=== PATIENT | female | born 1985 | race Caucasian/White ===

== ENCOUNTER 2018-04-01 09:45 | Day surgery (SDC) | payer MEDICAID ==
[2018-03-31 10:16] LABS: BASOPHILS 0.1 % (0-2); EOSINOPHILS 1.3 % (0-7); HEMATOCRIT 37.4 % (36.0-48.0); HEMOGLOBIN 12.3 g/dL (12-16); IMMATURE GRANULOCYTES 0.2 % (0-5); LYMPHOCYTES 24.6 % (15-50); MCHC 32.9 g/dL (31.0-37.0); MCV 82.2 fL (80.0-100.0); MEAN PLATELET VOLUME 10.1 fL (7.4-10.4); MONOCYTES 5.8 % (2-11); PLATELET COUNT 314 10x3/uL (130-400); RBC 4.55 10x6/uL (4.00-5.40); RDW 15.1 % (11.5-14.5); WBC 9.5 10x3/uL (4.8-10.8)
[~2018-04-01] VITALS: Ht 160 cm; Wt 116.1 kg
--- NOTE | ~2018-04-01 | OP ---
PATIENT NAME: MERARI SINGH MEDICAL RECORD: [id number] :87 [facility] AD[facility] DATE: SURGEON: BRAIN DEL ROSARIO MD DATE OF OPERATION: 04/01/2018 PREOPERATIVE DIAGNOSIS: Undesired fertility. POSTOPERATIVE DIAGNOSIS: Undesired fertility. PROCEDURE: Laparoscopic tubal occlusion using Falope rings. SURGEON: Brain Del Rosario MD NUCLEAR MEDICAL TECHNOLOGIST: Brynn Cyr ANESTHETIC: General anesthetic with endotracheal intubation. FINDINGS: Uterus, tubes, and ovaries were unremarkable. What was visualized of the abdominal anatomy was also unremarkable. SPECIMENS REMOVED: Not applicable. ESTIMATED BLOOD LOSS: Less than or equal to 50 cc. FLUIDS: Lactated Ringer's, 600 cc. URINE OUTPUT: Quantity sufficient cath prior to this procedure. COMPLICATION: None. DRAINS: None. INDICATION: The patient is a 32-year-old multiparous female with undesired fertility. The patient has been given options for alternatives. The patient understands the risk of failure of 1:100 with an increased chance of an ectopic gestation if was to occur. DESCRIPTION OF PROCEDURE: After informed consent was assured, the patient was taken to the operating room, where anesthetic was obtained without difficulty. The patient was supine on the table and prepped and draped. Incision was made at the umbilicus to accommodate a 5-mm trocar, which was inserted without difficulty and pneumoperitoneum developed. Accessory trocar was now placed 2 fingerbreadths above the symphysis. With the patient in steep Trendelenburg position, a blunt probe was inserted through the accessory trocar and the bowel was swept free of the pelvis. Both right and left tubes were identified. Using a Falope ring applicator, the left tube was followed to its fimbriated end and then a section of the isthmic portion of the tube was selected to apply the Silastic band. This band was applied with good crease formation and blanching of the tissue. This was repeated on the contralateral side. The Falope ring applicator was reloaded with the second ring and again the tube was followed to its fimbriated end and the segment of the isthmic portion was selected. The second band was applied with good crease formation and blanching of the tissue. The occlusion sites of both tubes had Marcaine placed directly over the tube. The accessory port was removed under direct visualization as the pneumoperitoneum was released and then the primary port was removed. Sponge, OPERATIVE REPORT [id number] MERARI SINGH, and needle counts were correct times 2. Subcuticular stitch was used to reapproximate the skin and Dermabond was applied. The patient was awakened and went to the recovery area in stable condition. TRANSINT:[id number] Voice Confirmation ID: [id number] DOCUMENT ID: [id number] BRAIN DEL ROSARIO MD at 1253 CC: [id number] DICTATION DATE: 04/08/182212 [employer]: 04/09/18 0111 [facility] 04/01/18 [facility] [address] [place] [address]
[~2018-04-01 09:45] MED LIST: CARAFATE1 G PO; CELEXA20 MG PO; LITHIUM CARBON150 MG PO; TOFRANIL50 MG PO
[2018-04-01] MEDS ORDERED: LITHIUM CARBON300 MG PO (11:21)
[2018-04-01 11:42] VITALS: BP 125/86; Ht 160 cm; Wt 116.1 kg
[2018-04-01 12:39] LABS: HCG URINE NEGATIVE (NEGATIVE)
== END 2018-04-01 16:55 | disposition home or self-care (01) ==
LOC: D.OPS 09:45 → D.PAN 09:55 → D.OPS 11:45
PROVIDERS: Obstetrics & Gynecology
DX: Z30.2 Encounter for sterilization (principal); Z01.812 Encounter for preprocedural laboratory examination